=== PATIENT | male | born 1970 | race Caucasian/White ===

== ENCOUNTER 2017-09-27 14:16 | Emergency (ER) | payer OTHER ==
[2017-09-27 14:40] VITALS: BP 126/84; PULSE 79; TEMP 97.8; BMI 21.1
--- NOTE | 2017-09-27 15:27 | PDOC ---
History of Present Illness - General History Source: Patient Exam Limitations: No Limitations - History of Present Illness Initial Comments: 09/27/17 15:34 The patient is a 47 year old male with no significant past medical history who presents to the ED with 2 days of shortness of breath. He has been having these same symptoms for over a week and the patient reports he visited [facility] ED 8 days ago for shortness of breath and cough. Labs, ECG, chest X ray were performed and normal (per patient and discharge records). Patient was discharged home with 100 mg of Benzonatate for cough. Patient states his symptoms worsened last night and he reports diaphoresis, chills, generalized weakness and shortness of breath. He reports feeling anxious and a pressure like sensation in his chest secondary to his shortness of breath earlier today. He also reports loss of appetite, slight nonproductive cough, and dry throat associated with present symptoms. He is able to ambulate without symptoms but symptoms seem to present mostly during the night. Denies fever or chills. Denies nausea, vomiting, diarrhea, constipation. Denies dysuria or change in urinary output. Denies swelling to his extremities. Denies any other symptoms. Social hx: The patient is a former smoker (quit 20+ years ago). PCP: Dr. Doss <Corey Woodard - Last Filed: 09/27/17 16:04> <Denton Dumas - Last Filed: 09/27/17 16:59> - General Chief Complaint: Respiratory Stated Complaint: SHORT OF BREATH Time Seen by Provider: 09/27/17 14:27 Past History <Corey Woodard - Last Filed: 09/27/17 16:04> - Past Medical History COPD: No Other medical history: DENIES - Suicide/Smoking/Psychosocial Hx Smoking History: Never smoked Information on smoking cessation initiated: No Hx Alcohol Use: No Drug/Substance Use Hx: No Substance Use Type: None <Denton Dumas - Last Filed: 09/27/17 16:59> - Past Medical History Allergies/Adverse Reactions: Allergies Allergy/AdvReac Type Severity Reaction Status Date / Time No Known Allergies Allergy Verified 09/27/17 14:28 Home Medications: Ambulatory Orders NK [No Known Home Medication] 09/27/17 Review of Systems - Review of Systems Able to Perform ROS?: Yes Comments:: 09/27/17 15:35 CONSTITUTIONAL: + diaphoresis, chills, generalized weakness, loss of appetite Absent: Fever, Malaise HEENT: Absent: Rhinorrhea, Nasal Congestion, Throat Pain, Throat Swelling, Difficulty Swallowing, Mouth Swelling, Ear Pain, Eye Pain, Visual Changes CARDIOVASCULAR: + chest discomfort Absent: Syncope, Palpitations, Irregular Heart Rate, Lightheadedness, Peripheral Edema RESPIRATORY: + shortness of breath, cough Absent: SOB with Exertion, Orthopnea, Wheezing, Stridor, Hemoptysis GASTROINTESTINAL: Absent: Abdominal pain, Abdominal Distension, Nausea, Vomiting, Diarrhea, Constipation, Melena, Hematochezia GENITOURINARY: Absent: Dysuria, Frequency, Urgency, Hesitancy, Flank Pain, Genital Pain MUSCULOSKELETAL: Absent: Myalgia, Arthralgia, Joint Swelling, Back pain, Neck Pain SKIN: Absent: Rash, Itching, PalloR HEMEATOLOGIC/IMMUNOLOGIC: Absent: Easy Bleeding, Easy Bruising, Lymphadenopathy, Frequent infections ENDOCRINE: Absent: Unexplained Weight Gain, Unexplained Weight Loss, Heat Intolerance, Cold Intolerance NEUROLOGIC: Absent: Headache, Focal Weakness, Paresthesias, Vertigo, Lightheadedness, Unsteady Gait, Seizure, Mental Status Changes, Incontinence PSYCHIATRIC: + anxious Absent: Depression All Other Systems: Reviewed and Negative <Corey Woodard - Last Filed: 09/27/17 16:04> *Physical Exam - Vital Signs Last Vital Signs Temp Pulse Resp BP Pulse Ox 97.8 F 79 20 126/84 100 09/27/17 14:17 09/27/17 14:17 09/27/17 14:17 09/27/17 14:17 09/27/17 14:17 - Physical Exam Comments: 09/27/17 15:35 GENERAL: The patient is awake, alert, and fully oriented, in no acute distress. HEAD: Normal with no signs of trauma. EYES: Pupils equal, round and reactive to light, extraocular movements intact, sclera anicteric, conjunctiva clear. ENT: Ears normal, nares patent, oropharynx clear without exudates. Moist mucous membranes. NECK: Normal range of motion, supple without lymphadenopathy, JVD, or masses. LUNGS: Breath sounds equal, clear to auscultation bilaterally. No wheezes, and no crackles. HEART: Regular rate and rhythm, normal S1 and S2 without murmur, rub or gallop. ABDOMEN: Soft, nontender, normoactive bowel sounds. No guarding, no rebound. No masses. EXTREMITIES: Normal range of motion, no edema. No clubbing or cyanosis. No cords , erythema, or tenderness. NEUROLOGICAL: Cranial nerves II through XII grossly intact. Normal speech, normal gait. PSYCH: Normal mood, normal affect. SKIN: Warm, Dry, normal turgor, no rashes or lesions noted. <Corey Woodard - Last Filed: 09/27/17 16:04> - Vital Signs Last Vital Signs Temp Pulse Resp BP Pulse Ox 97.8 F 79 20 126/84 100 09/27/17 14:17 09/27/17 14:17 09/27/17 14:17 09/27/17 14:17 09/27/17 14:17 <Denton Dumas - Last Filed: 09/27/17 16:59> Heart Score/ECG Review - History History: Slightly suspicious - Electrocardiogram EKG: Normal - Age Age: 45-65 - Risk Factors Risk Factors Heart Score: Yes Hx Hypercholesterolemia Based on the list above the patient has:: 1-2 risk factors - Troponin Troponin: </= normal limit - Score Heart Score - Total: 2 (second workup for the same symptoms) - ECG Impressions Comment:: 09/27/17 16:53 Twelve-lead EKG shows normal sinus rhythm at a rate of 69 beats per minute. The axis is normal. The intervals are normal. There are no abnormal Q waves. There is no abnormal ST elevation or depression. There are no abnormal T waves. Impression: Normal 12-lead EKG. No old tracing for comparison. <Denton Dumas - Last Filed: 09/27/17 16:59> ED Treatment Course - LABORATORY CBC & Chemistry Diagram: 09/27/17 15:33 09/27/17 15:33 <Corey Woodard - Last Filed: 09/27/17 16:04> - LABORATORY CBC & Chemistry Diagram: 09/27/17 15:33 09/27/17 15:33 - RADIOLOGY Radiology Studies Ordered: Category Date Time Status CHEST PA & LAT [RAD] Stat Radiology 09/27/17 15:26 Ordered <Denton Dumas - Last Filed: 09/27/17 16:59> Medical Decision Making - Medical Decision Making 09/27/17 16:54 Patient is a 47-year-old man with a history of borderline hyperlipidemia, quit smoking many decades ago. He presents complaining of ongoing symptoms of shortness of breath and chest discomfort. He states the symptoms mostly, at nighttime. He becomes anxious and short of breath and has chest pain when he takes a deep breath. It feels like a pressure with deep breathing. He states he is able to exercise and ambulate without any symptoms of chest discomfort. 8 days ago he was seen at the [facility] for evaluation of the same symptoms. Blood work, chest x-ray, and EKG were all normal. He was discharged with advice to follow-up with Dr. Andrews, his primary care physician. He has not yet seen his physician. He now comes in with recurrence of the same symptoms last night. His physical examination is normal. His laboratory workup including CBC, chemistries, and troponin are all normal. His 12-lead EKG is normal. PA and lateral chest x-ray was performed. On preliminary review by me, there is no cardiac or pulmonary abnormality of significance. There is no CHF. There is no cardiac enlargement. The chest x-ray appears normal. Impression: Ongoing, nonspecific chest pain, very atypical for cardiac pain. Workup in the prior ED and today in this ED is negative. Patient is advised to follow-up with his primary care physician. Given the atypical character of the pain, the ongoing nature, serial troponins are not indicated. His risk for ACS based on the history and heart score are very low risk. Patient is stable for further outpatient follow-up. 09/27/17 16:56 The scribe's documentation has been prepared under my direction and personally reviewed by me in its entirety. I have confirmed that the note above accurately reflects all work, treatment, procedures, and medical decision- making performed by me. 09/27/17 16:57 Laboratory Results - last 24 hr 09/27/17 09/27/17 09/27/17 15:30 15:33 15:33 WBC 9.5 RBC 5.59 Hgb 15.3 Hct 45.8 MCV 81.9 MCH 27.3 MCHC 33.3 RDW 12.3 Plt Count 260 MPV 9.2 Neutrophils % 69.9 Lymphocytes % 22.4 Monocytes % 5.2 Eosinophils % 0.6 Basophils % 1.9 Sodium 139 Potassium 4.3 Chloride 107 Carbon Dioxide 23 Anion Gap 9 BUN 10 Creatinine 0.9 Creat Clearance w eGFR > 60 Random Glucose 99 Calcium 9.4 Total Bilirubin 0.4 AST 20 ALT 17 Alkaline Phosphatase 79 Troponin I < 0.03 L Total Protein 7.4 Albumin 4.7 <Denton Dumas - Last Filed: 09/27/17 16:59> *DC/Admit/Observation/Transfer - Attestations Scribe Attestion: 09/27/17 15:35 Documentation prepared by Corey Woodard, acting as certified court/medical interpreter for Denton Dumas MD/DO. <Corey Woodard - Last Filed: 09/27/17 16:04> - Discharge Dispostion Admit: No <Denton Dumas - Last Filed: 09/27/17 16:59> Diagnosis at time of Disposition: Atypical chest pain - Discharge Dispostion Disposition: HOME Condition at time of disposition: Stable - Referrals Referrals: Emelia Andrews MD [Staff Physician] - - Patient Instructions Printed Discharge Instructions: DI for Atypical Chest Pain Additional Instructions: You were evaluated today for chest discomfort and shortness of breath. The physical examination, the blood tests including troponin, EKG, and the chest x- ray were all normal. You are advised to call Dr. Andrews after the weekend to schedule a follow-up appointment. We did not find a cause for the chest pain, and further testing should be done. If the symptoms become severe, return to the emergency department.
[2017-09-27 15:41] LABS: BASO % 1.9 % (0-2.0); EOS % 0.6 % (0-4.5); HEMATOCRIT 45.8 % (35.4-49); HEMOGLOBIN 15.3 GM/dl (11.7-16.9); LYMPH % 22.4 % (8-40); MCH 27.3 pg (25.7-33.7); MCHC 33.3 g/dl (32.0-35.9); MEAN CELL VOLUME 81.9 fl (80-96); MEAN PLT VOLUME 9.2 fl (7.5-11.1); MONO % 5.2 % (3.8-10.2); NEUT % 69.9 % (42.8-82.8); PLATELET COUNT 260 K/MM3 (134-434); RBC 5.59 M/mm3 (4.00-5.60); RDW 12.3 % (11.9-15.9); WHITE BLOOD COUNT 9.5 K/mm3 (4.0-10.8)
[2017-09-27 16:19] LABS: ALBUMIN 4.7 g/dl (3.5-5.0); ALK PHOS 79 U/L (32-92); ANION GAP 9 (8-16); BILIRUBIN,TOTAL 0.4 mg/dl (0.2-1.0); BLOOD UREA NITROGEN 10 mg/dl (7-18); CALCIUM 9.4 mg/dl (8.4-10.2); CHLORIDE 107 mmol/L (98-107); CO2 23 mmol/L (22-28); CREATININE 0.9 mg/dl (0.6-1.3); GLUCOSE,RANDOM 99 mg/dl (74-106); POTASSIUM 4.3 mmol/L (3.5-5.1); SGOT/AST 20 U/L (10-42); SGPT/ALT 17 U/L (10-40); SODIUM 139 mmol/L (136-145); TOT PROT 7.4 g/dl (6.4-8.3)
--- NOTE | 2017-09-27 16:24 | EKG ---
Test Reason : Blood Pressure : / mmHG Vent. Rate : 069 BPM Atrial Rate : 069 BPM P-R Int : 146 ms QRS Dur : 090 ms QT Int : 400 ms P-R-T Axes : 061 072 071 degrees QTc Int : 428 ms NORMAL SINUS RHYTHM NORMAL ECG WHEN COMPARED WITH ECG OF 29-OCT-2014 20:30, NO SIGNIFICANT CHANGE WAS FOUND Confirmed by GEMA GARCIA MD ([id number]) on 09/27/2017 4:23:49 PM Referred By: ABNER LEBLANC Confirmed By:GEMA GARCIA MD
== END 2017-09-27 17:17 | disposition home or self-care (01) ==
LOC: FER 14:16
DX: R07.89 Other chest pain (principal); E78.00 Pure hypercholesterolemia, unspecified
CPT/HCPCS: 36415; 71046-TC; 80053; 84484; 85025; 93005; 99283-25

== ENCOUNTER 2023-07-03 05:10 | Day surgery (SDC) | payer OTHER ==
[2023-06-26 12:07] VITALS: BMI 22.2
[2023-07-03 12:26] VITALS: TEMP 98
[2023-07-03 14:18] VITALS: BP 108/68; PULSE 66; RESP 99
== END 2023-07-03 12:40 | disposition home or self-care (01) ==
LOC: JASU-ENDO 05:10
PROVIDERS: ATTEND Internal Medicine Gastroenterology
PROC: 0DBL8ZX Excision of Transverse Colon, Via Natural or Artificial Opening Endoscopic, Diagnostic (ICD-10-PCS; 2023-07-03)
PROC: 0DBN8ZX Excision of Sigmoid Colon, Via Natural or Artificial Opening Endoscopic, Diagnostic (ICD-10-PCS; principal; 2023-07-03 11:30)
DX: Z12.11 Encounter for screening for malignant neoplasm of colon (principal); D12.3 Benign neoplasm of transverse colon; K63.5 Polyp of colon; K64.8 Other hemorrhoids
CPT/HCPCS: 88305-TC